=== PATIENT | male | born 1995 | race Two or more races ===

== ENCOUNTER 2017-08-16 21:05 | Emergency (ER) | payer SELFPAY ==
[~2017-08-16] VITALS: Ht 185.4 cm; Wt 99.8 kg
[2017-08-16 23:04] VITALS: BP 157/86
== END 2017-08-16 23:43 | disposition home or self-care (01) ==
LOC: ER 21:22
DX: R10.9 Unspecified abdominal pain (principal); R07.89 Other chest pain; V49.49XA Driver injured in collision with other motor vehicles in traffic accident, initial encounter; Y93.89 Activity, other specified; Y99.8 Other external cause status; Y92.410 Unspecified street and highway as the place of occurrence of the external cause
CPT/HCPCS: 71045; 72125; 74176